=== PATIENT | female | born 1950 | race American Indian/Alaskan Native ===

== ENCOUNTER 2019-11-03 10:16 | Observation (INO) | payer MEDICARE ==
[2019-11-03] MEDS ORDERED: ASPIRIN 325 MG TAB PO ONE (10:38)
--- NOTE | 2019-11-03 11:31 | XRay Report ---
CHEST 1 VIEW INDICATION: Chest Pain. COMPARISON: 08/07/2017. FINDINGS: Support devices: None. Heart: Normal. Lungs/Pleura: No acute pulmonary or pleural findings. IMPRESSION: 1. No acute findings. Signer Name: Jose Alvarado MD Signed: 11/03/2019 11:27 AM Workstation Name: [id number]
[2019-11-03 11:32] LABS: Basophils % (Auto) 0.6 % (0.0-1.8); Eosinophils # (Auto) 0.1 K/mm3 (0.0-0.4); Hematocrit 36.8 % (30.3-42.9); Lymphocytes # (Auto) 0.9 K/mm3 (1.2-5.4); Mean Corpuscular HGB Conc 35 % (30-34); Mean Corpuscular Volume 97 fl (79-97); Monocytes # (Auto) 0.4 K/mm3 (0.0-0.8); Monocytes % (Auto) 6.4 % (0.0-7.3); Platelet Count 189 K/mm3 (140-440); Red Blood Count 3.78 M/mm3 (3.65-5.03); Red Cell Distribution Width 13.5 % (13.2-15.2)
[2019-11-03] MEDS ORDERED: NITROGLYCERIN 0.4 MG TAB SUBL SL PRN (11:47)
[2019-11-03] MEDS ORDERED: hydroCHLOROthiazide 25 MG TAB PO ONE (11:48)
[2019-11-03] MEDS ORDERED: LOSARTAN 50 MG TAB PO ONE (11:48)
[2019-11-03] MEDS ORDERED: amLODIPine 10 MG TAB PO STA (11:48)
[2019-11-03] MEDS ORDERED: METOPROLOL TARTRATE 50 MG TAB PO ONE (11:48)
--- NOTE | 2019-11-03 11:48 | Emergency Department Report ---
ED Chest Pain HPI - General Chief Complaint: Chest Pain Stated Complaint: CHEST PAIN, SOB PUI?: No Time Seen by Provider: 11/03/19 11:30 Source: patient, RN notes reviewed, old records reviewed Mode of arrival: Stretcher Limitations: No Limitations - History of Present Illness Initial Comments: The patient was evaluated in the emergency department for symptoms described in the history of present illness. He/she was evaluated in the context of the global COVID-19 pandemic, which necessitated consideration that the patient mi ght be at risk for infection with the virus that causes COVID-19. Institutional protocols and algorithms that pertain to the evaluation of patients at risk for COVID-19 are in a state of rapid change based on information released by regulatory bodies including the CDC and federal and state organizations. These policies and algorithms were followed during the patient's care in the emergency department. Please note that these policies, procedures and recommendations changed on a rapid basis. During the entire history and physical examination, I am chemical processing technician and escorted by Software Quality Tester/air brake worker Walter Corrales Primary cardiology: Dr. Schneider; [facility], [phone] The patient is a 68-year-old female. I have evaluated her in the past. Past medical history includes hypertension, type 2 diabetes, heart disease with stents, MDD, dyslipidemia. The patient had a cardiac catheterization at this hospital in 2018, which showed severe single-vessel mcgrath coronary artery disease, with 90% proximal RCA stenosis, and a long complex 80% mid RCA stenosis, in the setting of acute co ronary syndrome/unstable angina. The patient had a guided PCI with drug-eluting stents placed. Residual 30 to 40% distal RCA stenosis is identified. She was found to have an ejection fraction of 60 to 65%. Recommendations were to continue aspirin, Plavix and statin therapy. Blood pressure control, "the patient absolutely needs to quit smoking given aggressive/progressive coronary artery disease." Today, the patient presents to the ER with a complaint of central and left-sided chest pain, with associated shortness of breath, intermittent over the past few days. There is no vomiting or diaphoresis. There is no calf pain or calf swelling, travel, surgery, or immobilization. The patient reports that she is still smoking. She is taking aspirin on a regular basis. However, she is not taking Imdur, and it does not appear that she is taking Plavix. She has not had a cardiac catheterization or stress test since 2018. She is right-hand dominant. She denies repetitive range of motion and trauma. The chest pain is intermittent, does not radiate anywhere, and does not have exacerbating or relieving factors. She is chest pain-free at this time. Symptoms have been going on for about the past 2 days. MD Complaint: chest pain -: Gradual, days(s) Onset: during rest Pain Location: left chest Pain Radiation: none Severity: moderate Quality: tightness, aching Consistency: intermittent Improves With: nothing Worsens With: nothing re: dyspnea Aspirin use within the Past 7 Days: (1) Yes - Related Data Home Medications Medication Instructions Recorded Confirmed Last Taken Famotidine [Pepcid] 20 mg PO BID 08/05/17 08/05/17 08/03/17 Insulin Glargine,Hum.rec.anlog 53 units SC HS 08/05/17 08/05/17 08/04/17 [Lantus] 53 units Novolin R 13 units SQ AC 08/05/17 08/05/17 Unknown Sertraline [Zoloft] 50 mg PO QDAY 08/05/17 08/05/17 08/03/17 Previous Rx's Medication Instructions Recorded Last Taken Type Magnesium Oxide 400 mg PO BID #30 tablet 08/05/17 Unknown Rx Acetaminophen [Acetaminophen TAB] 650 mg PO Q4H PRN #30 tablet 08/07/17 Unknown Rx Aspirin EC [Halfprin EC] 81 mg PO QDAY #30 tablet 08/07/17 Unknown Rx Clopidogrel [Plavix] 75 mg PO QDAY #30 tablet 08/07/17 Unknown Rx ISOSORBIDE MONOnitrate [Imdur ER] 30 mg PO QDAY #30 tablet 08/07/17 Unknown Rx Losartan/Hydrochlorothiazide 1 each PO DAILY #30 tablet 08/07/17 Unknown Rx [Losartan-Hctz 100-25 mg Tab] Metoprolol [Lopressor TAB] 25 mg PO BID #60 tablet 08/07/17 Unknown Rx NIFEdipine [Nifedipine ER] 60 mg PO BID #60 08/07/17 08/04/17 Rx Rosuvastatin (Nf) [Crestor] 20 mg PO QHS #30 tablet 08/07/17 Unknown Rx Allergies Allergy/AdvReac Type Severity Reaction Status Date / Time No Known Allergies Allergy Unverified 08/04/17 16:04 Heart Score - HEART Score History: Moderately suspicious EKG: Non-specific Age: > 65 Risk factors: > 3 risk factors or hx of atherosclerotic disease Troponin: < normal limit HEART Score: 6 - Critical Actions Critical Actions: 4-6 pts:12-16.6% risk of adverse cardiac event. Should be admitted ED Review of Systems ROS: Stated complaint: CHEST PAIN, SOB Other details as noted in HPI Constitutional: denies: fever Eyes: denies: eye discharge ENT: denies: congestion Respiratory: shortness of breath Cardiovascular: chest pain Gastrointestinal: denies: abdominal pain, nausea, vomiting, hematemesis, melena, hematochezia Genitourinary: denies: dysuria Musculoskeletal: myalgia. denies: back pain Hematological/Lymphatic: denies: easy bleeding ED Past Medical Hx - Past Medical History Previous Medical History?: Yes Hx Hypertension: Yes Hx Heart Attack/AMI: Yes Hx Diabetes: Yes Hx HIV: Yes - Surgical History Past Surgical History?: Yes Hx Coronary Stent: Yes Additional Surgical History: Cardiac stents - Social History Smoking Status: Current Every Day Smoker - Medications Home Medications: Home Medications Medication Instructions Recorded Confirmed Last Taken Type Famotidine [Pepcid] 20 mg PO BID 08/05/17 08/05/17 08/03/17 History Insulin Glargine,Hum.rec.anlog 53 units SC HS 08/05/17 08/05/17 08/04/17 History [Lantus] 53 units Magnesium Oxide 400 mg PO BID #30 tablet 08/05/17 Unknown Rx Novolin R 13 units SQ AC 08/05/17 08/05/17 Unknown History Sertraline [Zoloft] 50 mg PO QDAY 08/05/17 08/05/17 08/03/17 History Acetaminophen [Acetaminophen TAB] 650 mg PO Q4H PRN #30 tablet 08/07/17 Unknown Rx Aspirin EC [Halfprin EC] 81 mg PO QDAY #30 tablet 08/07/17 Unknown Rx Clopidogrel [Plavix] 75 mg PO QDAY #30 tablet 08/07/17 Unknown Rx ISOSORBIDE MONOnitrate [Imdur ER] 30 mg PO QDAY #30 tablet 08/07/17 Unknown Rx Losartan/Hydrochlorothiazide 1 each PO DAILY #30 tablet 08/07/17 Unknown Rx [Losartan-Hctz 100-25 mg Tab] Metoprolol [Lopressor TAB] 25 mg PO BID #60 tablet 08/07/17 Unknown Rx NIFEdipine [Nifedipine ER] 60 mg PO BID #60 08/07/17 08/05/17 08/04/17 Rx Rosuvastatin (Nf) [Crestor] 20 mg PO QHS #30 tablet 08/07/17 Unknown Rx ED Physical Exam - General Limitations: No Limitations General appearance: alert, in no apparent distress, obese - Head Head exam: Present: atraumatic, normocephalic - Eye Eye exam: Present: normal appearance, EOMI. Absent: nystagmus - ENT ENT exam: Present: normal exam, normal orophraynx, mucous membranes moist, normal external ear exam - Neck Neck exam: Present: normal inspection, full ROM. Absent: tenderness, meningismus - Respiratory Respiratory exam: Present: normal lung sounds bilaterally, chest wall tenderness . Absent: respiratory distress, wheezes, rales, rhonchi, stridor - Cardiovascular Cardiovascular Exam: Present: regular rate, normal rhythm, normal heart sounds. Absent: bradycardia, tachycardia, irregular rhythm, systolic murmur, diastolic murmur, rubs, gallop - GI/Abdominal GI/Abdominal exam: Present: soft. Absent: distended, tenderness, guarding, rebound, rigid, pulsatile mass - Extremities Exam Extremities exam: Present: normal inspection, full ROM, tenderness (Patient re ports chronic point tenderness to the right lateral and medial malleolus.), other (2+ pulses noted in the bilateral upper and lower extremities. There is no palpable cord. negative Homans sign. Muscular compartments are soft. The pelvis is stable.). Absent: calf tenderness - Back Exam Back exam: Present: normal inspection, full ROM. Absent: tenderness, CVA tenderness (R), CVA tenderness (L), paraspinal tenderness, vertebral tenderness - Neurological Exam Neurological exam: Present: alert, oriented X3, other (No facial droop. Tongue midline. Extraocular movements intact bilaterally. Facial sensation intact to light touch in V1, V2, V3 distribution bilaterally. 5 and a 5 strength in 4 extremities. Sensation intact to light touch in 4 extremities.). Absent: motor sensory deficit - Psychiatric Psychiatric exam: Present: normal affect, normal mood - Skin Skin exam: Present: warm, dry, intact, normal color. Absent: rash ED Course Vital Signs 11/03/19 10:34 Temperature 98.7 F Pulse Rate 80 Respiratory 18 Rate Blood Pressure 193/70 O2 Sat by Pulse 99 Oximetry AROLDO score - Aroldo Score Age > 65: (1) Yes Aspirin use within the Past 7 Days: (1) Yes 3 or more CAD Risk Factors: (1) Yes 2 or more Angina events in past 24 hrs: (1) Yes Known CAD with more than 50% Stenosis: (1) Yes Elevated Cardiac Markers: (0) No ST Deviation Greater than 0.5mm: (0) No AROLDO Score: 5 ED Medical Decision Making - Lab Data Result diagrams: 11/03/19 11:08 11/03/19 11:05 Vital Signs 11/03/19 10:34 Temperature 98.7 F Pulse Rate 80 Respiratory 18 Rate Blood Pressure 193/70 O2 Sat by Pulse 99 Oximetry Lab Results 11/03/19 11/03/19 Range/Units 11:05 11:08 WBC 6.6 (4.5-11.0) K/mm3 RBC 3.78 (3.65-5.03) M/mm3 Hgb 13.0 (10.1-14.3) gm/dl Hct 36.8 (30.3-42.9) % MCV 97 (79-97) fl MCH 34 H (28-32) pg MCHC 35 H (30-34) % RDW 13.5 (13.2-15.2) % Plt Count 189 (140-440) K/mm3 Lymph % (Auto) 14.0 (13.4-35.0) % [place] % (Auto) 6.4 (0.0-7.3) % Eos % (Auto) 2.0 (0.0-4.3) % Baso % (Auto) 0.6 (0.0-1.8) % Lymph # (Auto) 0.9 L (1.2-5.4) K/mm3 [place] # (Auto) 0.4 (0.0-0.8) K/mm3 Eos # (Auto) 0.1 (0.0-0.4) K/mm3 Baso # (Auto) 0.0 (0.0-0.1) K/mm3 Seg Neutrophils % 77.0 H (40.0-70.0) % Seg Neutrophils # 5.1 (1.8-7.7) K/mm3 Estimated GFR > 60 ml/min BUN/Creatinine Ratio 16 % Troponin T < 0.010 (0.00-0.029) ng/mL - EKG Data -: EKG Interpreted by Me EKG shows normal: sinus rhythm Rate: normal - EKG Data 11/03/19 12:20 The EKG today shows a sinus rhythm, 73 bpm, borderline leftward axis deviation, borderline left anterior fascicular block, left ventricular hypertrophy, QTC 459 ms, 4 hours progression, minimal motion artifact. This EKG is not a STEMI. The EKG is abnormal. Fairly unchanged from prior EKG from 2018, with pseudo-normalized T waves in the lateral leads and inferior leads. - Radiology Data Radiology results: report reviewed, image reviewed Print Report Referring Physician: OLGA ALVARADO Patient Name: DANIELLA VALDIVIA Date of : 1950 Sex: Female Report Date: 2019-11-03 Report Status: Finalized Findings [place] [id number] XRay Report Signed Patient: DANIELLA VALDIVIA MR#: [id number] : 1950 Acct:[id number] Age/Sex: 68 / F ADM Date: 11/03/19 Loc: ED Attending Dr: Ordering Physician: OLGA ALVARADO MD Date of Service: 11/03/19 Procedure(s): XR chest 1V ap Accession Number(s): [id number] cc: OLGA ALVARADO MD Fluoro Time In Minutes: CHEST 1 VIEW INDICATION: Chest Pain. COMPARISON: 08/07/2017. FINDINGS: Support devices: None. Heart: Normal. Lungs/Pleura: No acute pulmonary or pleural findings. IMPRESSION: 1. No acute findings. Signer Name: Jose Alvarado MD Signed: 11/03/2019 11:27 AM Workstation Name: [id number] Transcribed By: STEVE Dictated By: Jose Alvarado MD Electronically Authenticated By: Jose Alvarado MD Signed Date/Time: 11/03/19 112 DD/ 26 TD/TT: - Medical Decision Making Differential diagnosis, including but not limited to: Stable angina, unstable angina, acute coronary syndrome, costochondritis, GERD, gastritis, hiatal hernia Assessment and plan: 68-year-old female with known extensive coronary artery disease, with very typical chest pain. Her EKG is not consistent with a STEMI. She is chest pain-free at this time. She denies DVT, pulmonary embolism risk factors and she is low risk by Wells criteria. There is a component of reproducible chest wall pain. However, patient at moderate to high risk for major adverse cardiac event as per heart score. We have recommended admission to the medical service for accelerated cardiac risk ratification and monitoring. The patient is amenable to this plan of care. 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 Kerri Khan, as her group performed cardiac catheterization on this patient in 2018. They will follow in consultation. Hospital physician, Dr. Shelli Story to admit Do not clinically suspect pneumonia at this time, nor do we suspect COVID at this time elevated blood pressure is reviewed and appreciated. This is a chronic finding. She has equal pulses in the upper and lower extremities, No pulsatile abdominal mass, unremarkable mediastinum, this is very unlikely to be aortic disease. We will continue previous antihypertensive medications Critical care attestation.: If time is entered above; I have spent that time in minutes in the direct care of this critically ill patient, excluding procedure time. ED Disposition Clinical Impression: History of coronary angioplasty, Chest pain, CAD (coronary artery disease), HTN (hypertension) Disposition: OP ADMIT IP TO THIS HOSP Is pt being admited?: Yes Does the pt Need Aspirin: No Condition: Good Instructions: Chest Pain (ED), Hypertension (ED)
[2019-11-03 12:14] LABS: BUN/Creatinine Ratio 16; Blood Urea Nitrogen 16 mg/dL (7-17); Hemolysis Index 12
[2019-11-03 12:40] LABS: INR 1.03 (0.87-1.13)
[2019-11-03] MEDS ORDERED: SODIUM CHLORIDE 0.9% 500 ML 500 ML IV SCH (15:00)
--- NOTE | 2019-11-03 16:06 | Consultation ---
History of Present Illness Consult date: 11/03/19 Requesting physician: OLGA ALVARADO Consult reason: chest pain History of present illness: Pt is a 68 y.o. AA female with a hx of CAD s/p PCI x 4 (most recently 07/2017, on Plavix) who presented with complaints of intermittent left-sided chest pain/tightness x 2 days prior to arrival. Pt states pain is severe and asso ciated with hot flashes/flushing, dizziness, and SOB. Each episode lasts approximately 5 min. Aggravated by activity. Some relief noted with SL NTG. Pt also reports progressively worsening SOB/GIRNO over the past week. She denies any additional cardiac complaints. No recent fever/chills. Pt reports she has been compliant with home medications and diet. Trop neg x 2. ECG reveals no acute ischemic changes. CXR unremarkable. HEART Score: 6 Lexiscan MPI stress test 08/2017 - negative for ischemia. [facility] 07/2017 - PCI x 2 of RCA w/residual stenosis of 30-40% noted, patent LAD and LCx stents, LVEF 60-65%. [facility] 10/2016 - PCI of LAD and LCx. Of note, pts Primary Child Watch Attendant is Dr. Schneider @ [facility]. Past History Past Medical History: CAD, diabetes, hypertension, hyperlipidemia Past Surgical History: Other (coronary stents x 4) Social history: smoking. denies: alcohol abuse Medications and Allergies Allergies Allergy/AdvReac Type Severity Reaction Status Date / Time No Known Allergies Allergy Unverified 08/04/17 16:04 Home Medications Medication Instructions Recorded Confirmed Last Taken Type Famotidine [Pepcid] 20 mg PO BID 08/05/17 11/03/19 08/03/17 History Novolin R 17 units SQ AC 08/05/17 11/03/19 Unknown History Aspirin EC [Halfprin EC] 81 mg PO QDAY #30 tablet 08/07/17 11/03/19 Unknown Rx Clopidogrel [Plavix] 75 mg PO QDAY #30 tablet 08/07/17 11/03/19 Unknown Rx Losartan/Hydrochlorothiazide 1 each PO DAILY #30 tablet 08/07/17 11/03/19 Unknown Rx [Losartan-Hctz 100-25 mg Tab] Metoprolol [Lopressor TAB] 25 mg PO BID #60 tablet 08/07/17 11/03/19 Unknown Rx NIFEdipine [Nifedipine ER] 60 mg PO BID #60 08/07/17 11/03/19 08/04/17 Rx Rosuvastatin (Nf) [Crestor] 20 mg PO QHS #30 tablet 08/07/17 11/03/19 Unknown Rx Bictegrav/Emtricit/Tenofov [place] 1 tab PO QDAY 11/03/19 11/03/19 Unknown History [Biktarvy 50-200-25 mg (Nf)] Doxazosin [Cardura] 4 mg PO QDAY 11/03/19 11/03/19 Unknown History Insulin Glargine,Hum.rec.anlog 55 unit SQ HS 11/03/19 11/03/19 Unknown History [Talaglsheron Hester U-100] Active Meds: Active Medications Sodium Chloride (Nacl 0.9% 500 Ml) 500 mls @ 50 mls/hr IV DIRECT MARY Stop: 11/04/19 00:59 Nitroglycerin (Nitrostat) 0.4 mg SL .Q5MIN PRN PRN Reason: Chest Pain Review of Systems Constitutional: no fever, no chills, no sweats Ears, nose, mouth and throat: no nasal congestion, no sore throat Cardiovascular: chest pain, lightheadedness, shortness of breath, dyspnea on exertion, no orthopnea, no rapid/irregular heart beat, no edema, no syncope, no paroxysmal nocturnal dyspnea, no claudication Respiratory: shortness of breath, dyspnea on exertion, no cough Gastrointestinal: no abdominal pain, no nausea, no vomiting, no diarrhea, no constipation Genitourinary Female: no pelvic pain, no flank pain, no dysuria Musculoskeletal: no neck stiffness, no neck pain, no myalgias Integumentary: no rash, no wounds Neurological: no head injury, no paralysis, no weakness, no parathesias, no numbness, no tingling, no seizures, no syncope, no vertigo, no headaches Endocrine: no cold intolerance, no heat intolerance, no polydipsia, no polyuria Hematologic/Lymphatic: no easy bruising, no easy bleeding Allergic/Immunologic: no urticaria Physical Examination Last Vital Signs Temp 98.7 F 11/03/19 10:34 Pulse 58 L 11/03/19 15:57 Resp 11 L 11/03/19 13:45 BP 179/59 11/03/19 13:45 Pulse Ox 98 11/03/19 13:45 General appearance: no acute distress HEENT: Positive: EOMI, Normocephaly, Mucus Membranes Moist Neck: Positive: neck supple, trachea midline. Negative: JVD/HJR Cardiac: Positive: Reg Rate and Rhythm, S1/S2 Lungs: Positive: clear to auscultation (bilaterally) Neuro: Positive: Grossly Intact Abdomen: Positive: Soft, Active Bowel Sounds. Negative: Tender Skin: Negative: Rash, Wound Musculoskeletal: No Fluid Collection, No Pain, Normal Range of Motion Extremities: Present: upper extr. pulses, lower extr. pulses. Absent: edema Results 11/03/19 11:08 11/03/19 11:05 Coagulation 11/03/19 Range/Units 12:13 PT 13.7 (12.2-14.9) Sec. INR 1.03 (0.87-1.13) CBC 11/03/19 Range/Units 11:08 WBC 6.6 (4.5-11.0) K/mm3 RBC 3.78 (3.65-5.03) M/mm3 Hgb 13.0 (10.1-14.3) gm/dl Hct 36.8 (30.3-42.9) % Plt Count 189 (140-440) K/mm3 Lymph # (Auto) 0.9 L (1.2-5.4) K/mm3 [place] # (Auto) 0.4 (0.0-0.8) K/mm3 Eos # (Auto) 0.1 (0.0-0.4) K/mm3 Baso # (Auto) 0.0 (0.0-0.1) K/mm3 Comprehensive Metabolic Panel 11/03/19 Range/Units 11:05 Sodium 145 (137-145) mmol/L Potassium 5.2 H (3.6-5.0) mmol/L Chloride 105.3 (98-107) mmol/L Carbon Dioxide 25 (22-30) mmol/L BUN 16 (7-17) mg/dL Creatinine 1.0 (0.6-1.2) mg/dL Glucose 208 H (65-100) mg/dL Calcium 10.0 (8.4-10.2) mg/dL - Imaging and Cardiology Cardiac cath: pending, report reviewed (07/2017 - PCI x 2 of RCA w/residual stenosis of 30-40% noted, patent LAD and LCx stents, LVEF 60-65%), other (10/2016 - PCI of LAD and LCx) EKG: report reviewed, image reviewed - EKG Interpretation EKG: no acute changes EKG interpretations - Telemetry EKG Rhythm: Sinus Rhythm - EKG Sinus rhythms and dysrhythmias: sinus rhythm Chamber hypertrophy or enlargement: left ventricular hypertro Repolarization changes or abnormalities: nonspecific abnormality, ST segment, and/or T wave Assessment and Plan Plan for LHC in AM. NPO after midnight. Resume home cardiac regimen. Ok to continue Plavix. Obtain echo. Pt seen in conjunction with Dr. Parker, who agrees with the assessment and plan of care. - Patient Problems (1) Chest pain Current Visit: Yes Status: Acute Qualifiers: (2) CAD (coronary artery disease) Current Visit: Yes Status: Chronic Qualifiers: Coronary Disease-Associated Artery/Lesion type: [place] artery [place] vs. transplanted heart: [place] heart Associated angina: with unstable angina Qualified Code(s): I25.110 - Atherosclerotic heart disease of [place] coronary artery with unstable angina pectoris (3) Stented coronary artery Current Visit: Yes Status: Acute Plan to address problem: x4 (4) Hyperkalemia Current Visit: Yes Status: Acute (5) HTN (hypertension) Current Visit: Yes Status: Chronic Qualifiers: Hypertension type: essential hypertension Qualified Code(s): I10 - Essential (primary) hypertension (6) HLD (hyperlipidemia) Current Visit: Yes Status: Chronic Qualifiers: Hyperlipidemia type: mixed hyperlipidemia Qualified Code(s): E78.2 - Mixed hyperlipidemia (7) DM2 (diabetes mellitus, type 2) Current Visit: Yes Status: Chronic (8) Tobacco abuse Current Visit: Yes Status: Chronic
[2019-11-03] MEDS: LOSARTAN 50 MG TAB PO SCH (17:07)
[2019-11-03] MEDS: hydroCHLOROthiazide 25 MG TAB PO SCH (17:07)
[2019-11-03] MEDS: amLODIPine 10 MG TAB PO SCH (17:08)
[2019-11-03] MEDS ORDERED: INSULIN REGULAR, HUMAN 100 UNIT/ML 3ML VIAL SUB-Q SCH (22:00)
[2019-11-03] MEDS: METOPROLOL TARTRATE 25 MG TAB PO SCH (22:30)
[2019-11-03] MEDS ORDERED: NIFEdipine XL 60 MG TAB PO SCH (23:45)
[2019-11-03] MEDS ORDERED: METOPROLOL TARTRATE 25 MG TAB PO SCH (23:45)
[2019-11-04] MEDS ORDERED: NIFEdipine XL 60 MG TAB PO SCH (06:00)
[2019-11-04 06:06] LABS: Hematocrit 31.6 % (30.3-42.9); Mean Corpuscular HGB Conc 35 % (30-34); Mean Corpuscular Volume 98 fl (79-97); Platelet Count 169 K/mm3 (140-440); Red Blood Count 3.23 M/mm3 (3.65-5.03); Red Cell Distribution Width 13.3 % (13.2-15.2)
[2019-11-04 06:16] LABS: BUN/Creatinine Ratio 21; Blood Urea Nitrogen 17 mg/dL (7-17); Calcium 8.7 mg/dL (8.4-10.2); Hemolysis Index 1
[2019-11-04 06:20] LABS: INR 1.07 (0.87-1.13)
--- NOTE | 2019-11-04 07:27 | History and Physical Report ---
History of Present Illness Date of examination: 11/03/19 Date of admission: 11/03/19 12:30 Chief complaint: Chest pain for 1 day History of present illness: 58-year-old female with multiple medical problems including coronary artery disease multiple stents x4, hypertension, type 2 diabetes and hyperlipidemia comes in for recurrent chest pain off and on. For the last 3 to 4 days. Patient had a cardiac cath in this hospital in 2018 which showed severe essentially single-vessel coronary artery disease with 90% proximal RCA stenosis and a long complex 80% mid RCA stenosis in the setting of acute coronary syndrome/unstable angina. Patient had 2 stents at that time. Patient also had 2 stents over 9 months before. Chest pain is intermittent in nature exertional and about 7 on a scale of 1-10. Some shortness of breath present. No palpitations. No diaphoresis. No radiation of the chest pain. Patient also has history of HIV. - Past Medical History Previous Medical History?: Yes Hx Hypertension: Yes Hx Heart Attack/AMI: Yes Hx Diabetes: Yes Hx HIV: Yes - Surgical History Past Surgical History?: Yes Hx Coronary Stent: Yes Additional Surgical History: Cardiac stents - Social History Smoking Status: Current Every Day Smoker Family history Htn - Medications Home Medications: Home Medications Medication Instructions Recorded Confirmed Last Taken Type Famotidine [Pepcid] 20 mg PO BID 08/05/17 08/05/17 08/03/17 History Insulin Glargine,Hum.rec.anlog 53 units SC HS 08/05/17 08/05/17 08/04/17 History [Lantus] 53 units Magnesium Oxide 400 mg PO BID #30 tablet 08/05/17 Unknown Rx Novolin R 13 units SQ AC 08/05/17 08/05/17 Unknown History Sertraline [Zoloft] 50 mg PO QDAY 08/05/17 08/05/17 08/03/17 History Acetaminophen [Acetaminophen TAB] 650 mg PO Q4H PRN #30 tablet 08/07/17 Unknown Rx Aspirin EC [Halfprin EC] 81 mg PO QDAY #30 tablet 08/07/17 Unknown Rx Clopidogrel [Plavix] 75 mg PO QDAY #30 tablet 08/07/17 Unknown Rx ISOSORBIDE MONOnitrate [Imdur ER] 30 mg PO QDAY #30 tablet 08/07/17 Unknown Rx Losartan/Hydrochlorothiazide 1 each PO DAILY #30 tablet 08/07/17 Unknown Rx [Losartan-Hctz 100-25 mg Tab] Metoprolol [Lopressor TAB] 25 mg PO BID #60 tablet 08/07/17 Unknown Rx NIFEdipine [Nifedipine ER] 60 mg PO BID #60 08/07/17 08/05/17 08/04/17 Rx Rosuvastatin (Nf) [Crestor] 20 mg PO QHS #30 tablet 08/07/17 Unknown Rx Review of Systems ROS: Stated complaint: CHEST PAIN, SOB Other details as noted in HPI Constitutional: denies: fever Eyes: denies: eye discharge ENT: denies: congestion Respiratory: shortness of breath Cardiovascular: chest pain Gastrointestinal: denies: abdominal pain, nausea, vomiting, hematemesis, melena, hematochezia Genitourinary: denies: dysuria Musculoskeletal: myalgia. denies: back pain Hematological/Lymphatic: denies: easy bleeding Past History Past Medical History: CAD, diabetes, hypertension, hyperlipidemia Past Surgical History: Other (coronary stents x 4) Social history: smoking. denies: alcohol abuse Medications and Allergies Allergies Allergy/AdvReac Type Severity Reaction Status Date / Time No Known Allergies Allergy Unverified 08/04/17 16:04 Home Medications Medication Instructions Recorded Confirmed Last Taken Type Famotidine [Pepcid] 20 mg PO BID 08/05/17 11/03/19 08/03/17 History Novolin R 17 units SQ AC 08/05/17 11/03/19 Unknown History Aspirin EC [Halfprin EC] 81 mg PO QDAY #30 tablet 08/07/17 11/03/19 Unknown Rx Clopidogrel [Plavix] 75 mg PO QDAY #30 tablet 08/07/17 11/03/19 Unknown Rx Losartan/Hydrochlorothiazide 1 each PO DAILY #30 tablet 08/07/17 11/03/19 Unknown Rx [Losartan-Hctz 100-25 mg Tab] Metoprolol [Lopressor TAB] 25 mg PO BID #60 tablet 08/07/17 11/03/19 Unknown Rx NIFEdipine [Nifedipine ER] 60 mg PO BID #60 08/07/17 11/03/19 08/04/17 Rx Rosuvastatin (Nf) [Crestor] 20 mg PO QHS #30 tablet 08/07/17 11/03/19 Unknown Rx Bictegrav/Emtricit/Tenofov Ala 1 tab PO QDAY 11/03/19 11/03/19 Unknown History [Biktarvy 50-200-25 mg (Nf)] Doxazosin [Cardura] 4 mg PO QDAY 11/03/19 11/03/19 Unknown History Insulin Glargine,Hum.rec.anlog 55 unit SQ HS 11/03/19 11/03/19 Unknown History [Yesenia Hester U-100] Metformin HCl [metFORMIN] 1,000 mg PO BID 11/03/19 11/03/19 11/03/19 History Active Meds: Active Medications Amlodipine Besylate (Amlodipine) 10 mg PO QDAY [facility] Last Admin: 11/03/19 17:08 Dose: Not Given Documented by: Aspirin (Baby Aspirin) 81 mg PO QDAY [facility] Atorvastatin Calcium (Lipitor) 40 mg PO QHS [facility] Last Admin: 11/04/19 01:47 Dose: Not Given Documented by: Clopidogrel Bisulfate (Plavix) 75 mg PO QDAY [facility] Doxazosin Mesylate (Cardura) 4 mg PO QDAY [facility] Famotidine (Pepcid) 20 mg PO BID [facility] Hydrochlorothiazide (Hctz) 25 mg PO QDAY [facility] Last Admin: 11/03/19 17:07 Dose: Not Given Documented by: Insulin Glargine (Lantus) 55 units SUB-Q QHS [facility] Insulin Human Lispro (Humalog) 0 unit SUB-Q ACHS [facility]; Protocol Insulin Human Regular (Humulin R) 10 unit SUB-Q AC [facility] Losartan Potassium (Cozaar) 100 mg PO QDAY [facility] Last Admin: 11/03/19 17:07 Dose: Not Given Documented by: Metformin HCl (Glucophage) 1,000 mg PO BIDDIAB [facility] Metoprolol Tartrate (Metoprolol) 25 mg PO BID [facility] Last Admin: 11/03/19 22:30 Dose: 25 mg Documented by: Miscellaneous Medication (Bictegrav/Emtricit/Tenofov Ala) 1 tab PO QDAY [facility] Nifedipine (Procardia Xl) 60 mg PO BID@0600,1800 [facility] Nitroglycerin (Nitrostat) 0.4 mg SL .Q5MIN PRN PRN Reason: Chest Pain Exam - Constitutional Vitals: Temp Pulse Resp BP Pulse Ox 98.0 F 57 L 18 146/44 97 11/04/19 04:26 11/04/19 04:26 11/04/19 04:26 11/04/19 04:26 11/04/19 04:26 General appearance: Present: no acute distress, well-nourished - EENT Eyes: Present: PERRL ENT: hearing intact, clear oral mucosa - Neck Neck: Present: supple, normal ROM - Respiratory Respiratory effort: normal Respiratory: bilateral: CTA - Cardiovascular Heart rate: 78 Rhythm: regular Heart Sounds: Present: S1 & S2. Absent: rub, click - Extremities Extremities: no ischemia, pulses intact, pulses symmetrical, No edema Peripheral Pulses: within normal limits - Abdominal General gastrointestinal: Present: soft, non-tender, non-distended, normal bowel sounds Female genitourinary: Present: normal - Integumentary Integumentary: Present: clear, warm, dry - Musculoskeletal Musculoskeletal: gait normal, strength equal bilaterally - Psychiatric Psychiatric: appropriate mood/affect, intact judgment & insight - Neurologic Neurologic: CNII-XII intact, moves all extremities - Allied Health Allied health notes reviewed: nursing, case management HEART Score - HEART Score History: Moderately suspicious EKG: Non-specific Age: > 65 Risk factors: > 3 risk factors or hx of atherosclerotic disease Troponin: Troponin T < 0.010 ng/mL (0.00-0.029) 11/03/19 17:11 Troponin: < normal limit HEART Score: 6 - Critical Actions Critical Actions: 4-6 pts:12-16.6% risk of adverse cardiac event. Should be admitted Results - Labs CBC & Chem 7: 11/04/19 05:09 11/04/19 05:09 Labs: Laboratory Last Values WBC 5.4 K/mm3 (4.5-11.0) 11/04/19 05:09 RBC 3.23 M/mm3 (3.65-5.03) L 11/04/19 05:09 Hgb 11.0 gm/dl (10.1-14.3) 11/04/19 05:09 Hct 31.6 % (30.3-42.9) 11/04/19 05:09 MCV 98 fl (79-97) H 11/04/19 05:09 MCH 34 pg (28-32) H 11/04/19 05:09 MCHC 35 % (30-34) H 11/04/19 05:09 RDW 13.3 % (13.2-15.2) 11/04/19 05:09 Plt Count 169 K/mm3 (140-440) 11/04/19 05:09 Lymph % (Auto) 14.0 % (13.4-35.0) 11/03/19 11:08 [place] % (Auto) 6.4 % (0.0-7.3) 11/03/19 11:08 Eos % (Auto) 2.0 % (0.0-4.3) 11/03/19 11:08 Baso % (Auto) 0.6 % (0.0-1.8) 11/03/19 11:08 Lymph # (Auto) 0.9 K/mm3 (1.2-5.4) L 11/03/19 11:08 [place] # (Auto) 0.4 K/mm3 (0.0-0.8) 11/03/19 11:08 Eos # (Auto) 0.1 K/mm3 (0.0-0.4) 11/03/19 11:08 Baso # (Auto) 0.0 K/mm3 (0.0-0.1) 11/03/19 11:08 Seg Neutrophils % 77.0 % (40.0-70.0) H 11/03/19 11:08 Seg Neutrophils # 5.1 K/mm3 (1.8-7.7) 11/03/19 11:08 PT 14.1 Sec. (12.2-14.9) 11/04/19 05:09 INR 1.07 (0.87-1.13) 11/04/19 05:09 Sodium 140 mmol/L (137-145) 11/04/19 05:09 Potassium 3.8 mmol/L (3.6-5.0) D 11/04/19 05:09 Chloride 104.1 mmol/L (98-107) 11/04/19 05:09 Carbon Dioxide 24 mmol/L (22-30) 11/04/19 05:09 Anion Gap 16 mmol/L 11/04/19 05:09 BUN 17 mg/dL (7-17) 11/04/19 05:09 Creatinine 0.8 mg/dL (0.6-1.2) 11/04/19 05:09 Estimated GFR > 60 ml/min 11/04/19 05:09 BUN/Creatinine Ratio 21 % 11/04/19 05:09 Glucose 184 mg/dL (65-100) H 11/04/19 05:09 POC Glucose 180 (70-105) H 11/04/19 05:58 Calcium 8.7 mg/dL (8.4-10.2) 11/04/19 05:09 Magnesium 1.90 mg/dL (1.7-2.3) 11/03/19 12:13 Total Creatine Kinase 199 units/L (30-135) H 11/03/19 12:13 Troponin T < 0.010 ng/mL (0.00-0.029) 11/03/19 17:11 Short CBC 11/03/19 11/04/19 Range/Units 11:08 05:09 WBC 6.6 5.4 (4.5-11.0) K/mm3 Hgb 13.0 11.0 (10.1-14.3) gm/dl Hct 36.8 31.6 (30.3-42.9) % Plt Count 189 169 (140-440) K/mm3 [facility] 11/03/19 11/04/19 11:05 05:09 Sodium 145 140 Potassium 5.2 H 3.8 D Chloride 105.3 104.1 Carbon Dioxide 25 24 BUN 16 17 Creatinine 1.0 0.8 Glucose 208 H 184 H Calcium 10.0 8.7 Cardiac Enzymes 11/03/19 11/03/19 11/03/19 Range/Units 11:05 12:13 14:24 Total Creatine Kinase 199 H (30-135) units/L Troponin T < 0.010 < 0.010 (0.00-0.029) ng/mL 11/03/19 Range/Units 17:11 Total Creatine Kinase (30-135) units/L Troponin T < 0.010 (0.00-0.029) ng/mL - Imaging and Cardiology EKG: report reviewed (Sinus rhythm no acute ST-T wave changes) Navas/IV: Voiding Method Toilet IV Catheter Type [Right Hand] Peripheral IV Assessment and Plan Advance Directives: Yes (Full code) VTE prophylaxis?: Chemical Plan of care discussed with patient/family: Yes - Patient Problems (1) Unstable angina Current Visit: Yes Status: Acute Plan to address problem: Patient for cath in the morning Serial troponins negative (2) History of coronary angioplasty Current Visit: Yes Status: Chronic Plan to address problem: Continue Plavix (3) CAD (coronary artery disease) Current Visit: Yes Status: Chronic Qualifiers: Coronary Disease-Associated Artery/Lesion type: [place] artery [place] vs. 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 use: unspecified rat exterminator insulin use status Plan to address problem: Check hemoglobin A1c Continue home medicines and coverage (5) HLD (hyperlipidemia) Current Visit: Yes Status: Chronic Qualifiers: Hyperlipidemia type: mixed hyperlipidemia Qualified Code(s): E78.2 - Mixed hyperlipidemia Plan to address problem: Continue statins (6) HTN (hypertension) Current Visit: Yes Status: Chronic Qualifiers: Hypertension type: essential hypertension Qualified Code(s): I10 - Essential (primary) hypertension Plan to address problem: Continue antihypertensives and adjust medications as necessary (7) DVT prophylaxis Current Visit: Yes Status: Acute Plan to address problem: On heparin and GI prophylaxis
[2019-11-04] MEDS ORDERED: NOVOLIN R SQ SCH (07:30)
[2019-11-04] MEDS: INSULIN LISPRO 100 UNIT/ML VIAL 3 mL SUB-Q SCH ×3 (07:30→17:23)
[2019-11-04] MEDS: metFORMIN 500 MG TAB PO SCH ×2 (08:00→17:20)
[2019-11-04] MEDS ORDERED: ASPIRIN 81 MG TAB CHEW ONE (08:13)
[2019-11-04] MEDS ORDERED: CLOPIDOGREL 75 MG TAB ONE (08:13)
[2019-11-04] MEDS ORDERED: SODIUM CHLORIDE 0.9% 500 ML 500 ML ONE (08:14)
[2019-11-04] MEDS: ASPIRIN 81 MG TAB CHEW PO SCH ×2 (08:18→10:00)
[2019-11-04] MEDS: CLOPIDOGREL 75 MG TAB PO SCH ×2 (08:19→11:54)
[2019-11-04] MEDS ORDERED: HEPARIN/NS 5000 UNIT/500ML 1,000 ML IR ONE (08:49)
[2019-11-04] MEDS ORDERED: VERAPAMIL 5 MG/2 ML INJ ONE (08:49)
[2019-11-04] MEDS ORDERED: NITROGLYCERIN SYRINGE 0 ML ONE (08:49)
[2019-11-04] MEDS ORDERED: HEPARIN 10,000 UNITS/10 ML VIAL ONE (08:49)
[2019-11-04] MEDS: MIDAZOLAM 2 MG/2 ML INJ ONE ×2 (09:07→09:14)
[2019-11-04] MEDS: fentaNYL 100 MCG/2 ML INJ ONE ×2 (09:07→09:14)
[2019-11-04] MEDS: LIDOCAINE (2%) 20 MG/1 ML VIAL 20 ML MDV INFILTRATI ONE ×2 (09:08→09:17)
[2019-11-04] MEDS ORDERED: DOXAZOSIN 4 MG TAB PO SCH (10:00)
[2019-11-04] MEDS ORDERED: ASPIRIN EC 81 MG TAB PO SCH (10:00)
[2019-11-04] MEDS ORDERED: CLOPIDOGREL 75 MG TAB PO SCH (10:00)
[2019-11-04] MEDS ORDERED: NON-FORMULARY EACH (Bictegrav/Emtricit/Tenofov Ala 1 TAB) PO SCH (10:00)
[2019-11-04] MEDS ORDERED: NON-FORMULARY EACH (Losartan/Hydrochlorothiazide [Losartan-Hctz 100-25 Mg Tab] 1 EACH) PO SCH (10:00)
[2019-11-04] MEDS: INSULIN REGULAR, HUMAN 100 UNIT/ML 3ML VIAL SUB-Q SCH ×3 (11:06→17:22)
[2019-11-04] MEDS ORDERED: MORPHINE 2 MG/1 ML INJ IV PRN (11:40)
[2019-11-04] MEDS: DOXAZOSIN 4 MG TAB PO SCH (11:50)
[2019-11-04] MEDS: hydroCHLOROthiazide 25 MG TAB PO SCH (11:50)
[2019-11-04] MEDS: amLODIPine 10 MG TAB PO SCH (11:52)
--- NOTE | 2019-11-04 12:54 | Cardiac Catherization Report ---
CARDIAC CATHETERIZATION REFERRING PHYSICIAN: Dr. Vasquez PRIMARY ____ INDICATION FOR PROCEDURE: The patient is a very pleasant 68-year-old female with multiple risk factors with multiple PCIs, had a PCI of RCA 2 years ago here, has had prior PCI of LAD and left circumflex. She is here with unstable angina, referred for left heart catheterization. Risks, benefits, alternatives explained at length prior to obtaining informed consent. PROCEDURE IN DETAIL: The patient requests groin approach. The patient was prepped and draped in sterile fashion, 8 mL of 2% lidocaine used to anesthetize the right common femoral artery via modified Seldinger technique. A 6-[place] sheath was placed in right common femoral artery via modified Seldinger technique. All exchanges performed to exchange a J-tip guidewire. JL3.5 catheter used to engage the left main. No dampening or ventricularization. Cineangiography performed in all projections. JR4 catheter used to cross the aortic valve under fluoroscopic guidance. Left ventriculography performed in 30 [place] and 30 ENGLISH projections via hand injections, catheter flushed. Manual pullback performed with continuous pressure monitoring. Catheter used to engage the right coronary. No dampening or ventricularization. Cineangiography performed in all projections. Next, due to unremarkable coronaries, aggressive hypertension and recurrent chest pain, root aortography was performed with a pigtail catheter in the ENGLISH projection with power injection. Next, catheter was removed from the body of wire, sheath removed. Manual pressure used to achieve hemostasis. I directly supervised the administration of moderate sedation with fentanyl and Versed from 9:00 a.m. to 9:30 a.m. No immediate complications were noted. DATA: Aortic pressure is 180/160, LV pressure is 180. LVEDP of 25 mmHg. Left ventriculography revealed normal systolic performance with estimated ejection fraction of 55-60%. No evidence of aortic stenosis. CORONARY ANATOMY: This is a right dominant system. Left main without significant disease, bifurcates into left anterior descending and left circumflex. Left circumflex, a moderate-sized vessel, courses AV groove. Scattered luminal irregularities. Patent stent in the mid left circumflex. Mild small vessel disease in this distal circumflex, nonobstructive disease noted. LAD is a moderate-sized vessel, coursing anterior intergroove, wraps around the apex. Patent stent in the mid LAD. Scattered luminal irregularities otherwise, but no obstructive disease identified. Right coronary is a moderate sized-vessel, courses AV groove, distally bifurcates into posterior descending and posterolateral branches. Stents are noted in the proximal and mid right coronary. A 20-30% stenosis in the mid right coronary, MADY 3 flow, no obstructive disease identified. Root aortography reveals normal contour, no evidence of dissection, normal great vessel anatomy, no aortic insufficiency. [id number] nonobstructive disease in this right dominant system with patent stents in the proximal/mid right coronary, mid LAD, mid left circumflex. Root aortography without evidence of aortic dissection, penetrating aortic ulcer, or aortic insufficiency. CONCLUSIONS: 1. Normal left ventricular systolic performance, estimated ejection fraction of 55-60%. 2. No evidence of aortic stenosis. 3. Uncontrolled hypertension. At this point, the patient is clinically improved. No chest pain. Medical management, aggressive blood pressure control. Consider adding Imdur and Ranexa. Standard groin care. Results of procedure explained to the patient at length. All questions and concerns were addressed. We will follow. JOB# [id number] SBM/NTS
[2019-11-04] MEDS: LOSARTAN 50 MG TAB PO SCH (13:21)
[2019-11-04] MEDS: METOPROLOL TARTRATE 25 MG TAB PO SCH ×2 (13:21→21:23)
[2019-11-04] MEDS: FAMOTIDINE 20 MG TAB PO SCH ×2 (13:24→21:23)
[2019-11-04] MEDS ORDERED: traMADol 50 MG TAB PO PRN (13:35)
[2019-11-04] MEDS ORDERED: HYDROcodone/ACETAMINOPHEN 5-325 MG TAB PO PRN (13:35)
--- NOTE | 2019-11-04 13:35 | Progress Note ---
Assessment and Plan S/p [facility] today via groin approach which showed left circ scattered LI, patent stent in mid left circ, mild small vessel disease in distal circ, patent mid LAD stent with scattered LI otherwise, prox and mid RCA stents noted, 20-30% stenosis in mid RCA, normal LVEF. Continue with medical management - add Ranexa and optimize anti-hypertensive regimen. Await echo. Smoking cessation counseling provided. Anticipate d/c in AM pending BPs are optimized. Pt seen in conjunction with Dr. Emmy Campos who agrees with the assessment and plan of care. - Patient Problems (1) Chest pain Current Visit: Yes Status: Resolved Qualifiers: (2) CAD (coronary artery disease) Current Visit: Yes Status: Chronic Qualifiers: Coronary Disease-Associated Artery/Lesion type: [place] artery [place] vs. transplanted heart: [place] heart Associated angina: with unstable angina Qualified Code(s): I25.110 - Atherosclerotic heart disease of [place] coronary artery with unstable angina pectoris (3) Stented coronary artery Current Visit: Yes Status: Acute Plan to address problem: x4 (4) Hyperkalemia Current Visit: Yes Status: Acute (5) HTN (hypertension) Current Visit: Yes Status: Chronic Qualifiers: Hypertension type: essential hypertension Qualified Code(s): I10 - Essential (primary) hypertension (6) HLD (hyperlipidemia) Current Visit: Yes Status: Chronic Qualifiers: Hyperlipidemia type: mixed hyperlipidemia Qualified Code(s): E78.2 - Mixed hyperlipidemia (7) DM2 (diabetes mellitus, type 2) Current Visit: Yes Status: Chronic (8) Tobacco abuse Current Visit: Yes Status: Chronic Subjective Date of service: 11/04/19 Principal diagnosis: chest pain Interval history: pt for [facility] today, no current complaints. in SR on tele with SB noted overnight, HR low 49bpm. Objective Last Vital Signs Temp 98.3 F 11/04/19 07:49 Pulse 59 L 11/04/19 11:52 Resp 12 11/04/19 10:30 BP 185/65 11/04/19 11:52 Pulse Ox 98 11/04/19 10:30 - Physical Examination General: No Apparent Distress HEENT: Positive: EOMI, Normocephaly, Mucus Membranes Moist Neck: Positive: neck supple, trachea midline. Negative: JVD/HJR Cardiac: Positive: Reg Rate and Rhythm, S1/S2 Lungs: Positive: Decreased Breath Sounds Neuro: Positive: Grossly Intact Abdomen: Positive: Soft, Active Bowel Sounds. Negative: Tender Skin: Negative: Rash, Wound Musculoskeletal: No Fluid Collection, No Pain, Normal Range of Motion Extremities: Present: upper extr. pulses, lower extr. pulses. Absent: edema - Labs and Meds Coagulation 11/04/19 Range/Units 05:09 PT 14.1 (12.2-14.9) Sec. INR 1.07 (0.87-1.13) CBC 11/04/19 Range/Units 05:09 WBC 5.4 (4.5-11.0) K/mm3 RBC 3.23 L (3.65-5.03) M/mm3 Hgb 11.0 (10.1-14.3) gm/dl Hct 31.6 (30.3-42.9) % Plt Count 169 (140-440) K/mm3 Comprehensive Metabolic Panel 11/04/19 Range/Units 05:09 Sodium 140 (137-145) mmol/L Potassium 3.8 D (3.6-5.0) mmol/L Chloride 104.1 (98-107) mmol/L Carbon Dioxide 24 (22-30) mmol/L BUN 17 (7-17) mg/dL Creatinine 0.8 (0.6-1.2) mg/dL Glucose 184 H (65-100) mg/dL Calcium 8.7 (8.4-10.2) mg/dL - Imaging and Cardiology EKG: report reviewed (Sinus rhythm no acute ST-T wave changes) Cardiac cath: pending, report reviewed (07/2017 - PCI x 2 of RCA w/residual stenosis of 30-40% noted, patent LAD and LCx stents, LVEF 60-65%), other (10/2016 - PCI of LAD and LCx) - EKG Sinus rhythms and dysrhythmias: sinus rhythm Chamber hypertrophy or enlargement: left ventricular hypertro Repolarization changes or abnormalities: nonspecific abnormality, ST segment, and/or T wave
--- NOTE | 2019-11-04 19:04 | Progress Note ---
Assessment and Plan Assessment and plan: -- Unstable angina Current Visit: Yes Status: Acute Plan to address problem: Status post heart cath today Patent stents, EF 55 to 60% Findings reviewed from the report Patient feels better no new complaints Medications optimized, cardiology added Ranexa --h/o Coronary artery disease s/p PCI Current Visit: Yes Status: Chronic Plan to address problem: Continue current regimen Cardiology optimized the medications --Type II DM Current Visit: Yes Status: Chronic Plan to address problem: Check hemoglobin A1c Accu-Chek sliding scale coverage ADA diet Hold metformin, insulin as needed --HLD (hyperlipidemia) Current Visit: Yes Status: Chronic Plan to address problem: Continue statins. Low-cholesterol diet --HTN (hypertension) Current Visit: Yes Status: Chronic Plan to address problem: Continue antihypertensives and adjust medications as necessary --morbid obesity; BMI 41.9 Current Visit: Yes Status: Chronic Plan to address problem: patient needs weight reduction when medically stable May benefit by outpatient bariatric surgical/medical weight reduction program When medically stable --possible obstructive sleep apnea Current Visit: Yes Status: Acute. Plan to address problem: CPAP/BiPAP at night as needed need outpatient sleep study to rule out PARISH If not already done --DVT prophylaxis Current Visit: Yes Status: Acute Plan to address problem: On heparin and GI prophylaxis We will closely monitor the patient and adjust management as needed Plan of care reviewed with the patient and her nurse Possible discharge home tomorrow if stable and cleared by cardiology History Interval history: I have seen and examined the patient this afternoon at the bedside Patient's chart and medications reviewed Patient had left heart catheterization today, findings as mentioned in the report Patient denies any chest pain or shortness of breath Vital signs noted Hospitalist Physical - Constitutional Vitals: Temp Pulse Resp BP Pulse Ox 98.3 F 59 L 12 185/65 98 11/04/19 07:49 11/04/19 11:52 11/04/19 10:30 11/04/19 11:52 11/04/19 10:30 General appearance: Present: no acute distress, well-nourished, obese (Morbidly obese) - EENT Eyes: Present: PERRL, EOM intact - Neck Neck: Present: supple, normal ROM - Respiratory Respiratory effort: normal Respiratory: bilateral: diminished, negative: rales, rhonchi, wheezing - Cardiovascular Rhythm: regular Heart Sounds: Present: S1 & S2 - Extremities Extremities: no ischemia, No edema - Abdominal General gastrointestinal: soft, non-tender, non-distended, normal bowel sounds - Integumentary Integumentary: Present: clear, warm - Psychiatric Psychiatric: appropriate mood/affect, cooperative - Neurologic Neurologic: moves all extremities HEART Score - HEART Score EKG: Non-specific Age: > 65 Risk factors: > 3 risk factors or hx of atherosclerotic disease Troponin: Troponin T < 0.010 ng/mL (0.00-0.029) 11/03/19 17:11 Troponin: < normal limit - Critical Actions Critical Actions: 4-6 pts:12-16.6% risk of adverse cardiac event. Should be admitted Results - Labs CBC & Chem 7: 11/04/19 05:09 11/04/19 05:09 Labs: Laboratory Last Values WBC 5.4 K/mm3 (4.5-11.0) 11/04/19 05:09 RBC 3.23 M/mm3 (3.65-5.03) L 11/04/19 05:09 Hgb 11.0 gm/dl (10.1-14.3) 11/04/19 05:09 Hct 31.6 % (30.3-42.9) 11/04/19 05:09 MCV 98 fl (79-97) H 11/04/19 05:09 MCH 34 pg (28-32) H 11/04/19 05:09 MCHC 35 % (30-34) H 11/04/19 05:09 RDW 13.3 % (13.2-15.2) 11/04/19 05:09 Plt Count 169 K/mm3 (140-440) 11/04/19 05:09 Lymph % (Auto) 14.0 % (13.4-35.0) 11/03/19 11:08 [place] % (Auto) 6.4 % (0.0-7.3) 11/03/19 11:08 Eos % (Auto) 2.0 % (0.0-4.3) 11/03/19 11:08 Baso % (Auto) 0.6 % (0.0-1.8) 11/03/19 11:08 Lymph # (Auto) 0.9 K/mm3 (1.2-5.4) L 11/03/19 11:08 [place] # (Auto) 0.4 K/mm3 (0.0-0.8) 11/03/19 11:08 Eos # (Auto) 0.1 K/mm3 (0.0-0.4) 11/03/19 11:08 Baso # (Auto) 0.0 K/mm3 (0.0-0.1) 11/03/19 11:08 Seg Neutrophils % 77.0 % (40.0-70.0) H 11/03/19 11:08 Seg Neutrophils # 5.1 K/mm3 (1.8-7.7) 11/03/19 11:08 PT 14.1 Sec. (12.2-14.9) 11/04/19 05:09 INR 1.07 (0.87-1.13) 11/04/19 05:09 Sodium 140 mmol/L (137-145) 11/04/19 05:09 Potassium 3.8 mmol/L (3.6-5.0) D 11/04/19 05:09 Chloride 104.1 mmol/L (98-107) 11/04/19 05:09 Carbon Dioxide 24 mmol/L (22-30) 11/04/19 05:09 Anion Gap 16 mmol/L 11/04/19 05:09 BUN 17 mg/dL (7-17) 11/04/19 05:09 Creatinine 0.8 mg/dL (0.6-1.2) 11/04/19 05:09 Estimated GFR > 60 ml/min 11/04/19 05:09 BUN/Creatinine Ratio 21 % 11/04/19 05:09 Glucose 184 mg/dL (65-100) H 11/04/19 05:09 POC Glucose 273 (70-105) H 11/04/19 17:07 Calcium 8.7 mg/dL (8.4-10.2) 11/04/19 05:09 Magnesium 1.90 mg/dL (1.7-2.3) 11/03/19 12:13 Total Creatine Kinase 199 units/L (30-135) H 11/03/19 12:13 Troponin T < 0.010 ng/mL (0.00-0.029) 11/03/19 17:11 Navas/IV: Voiding Method Bedpan IV Catheter Type [Left Hand] Peripheral IV IV Catheter Type [Right Hand] Peripheral IV Active Medications - Current Medications Current Medications: Generic Name Dose Route Start Last Admin Trade Name Freq PRN Reason Stop Dose Admin Hydrocodone Bitart/Acetaminophen 1 each 11/04/19 13:35 Ayr 5/325 PO Q4H PRN Pain, Moderate (4-6) Amlodipine Besylate 10 mg 11/03/19 17:00 11/04/19 11:52 Amlodipine PO 10 mg QDAY MARY Administration Aspirin 81 mg 11/04/19 10:00 11/04/19 10:00 Baby Aspirin PO Not Given QDAY MARY Atorvastatin Calcium 40 mg 11/03/19 22:00 11/04/19 01:47 Lipitor PO Not Given QHS [facility] Clopidogrel Bisulfate 75 mg 11/04/19 10:00 11/04/19 11:54 Plavix PO Not Given QDAY MARY Doxazosin Mesylate 4 mg 11/04/19 10:00 11/04/19 11:50 Cardura PO 4 mg QDAY [facility] Administration Famotidine 20 mg 11/04/19 10:00 11/04/19 13:24 Pepcid PO 20 mg BID MARY Administration Hydrochlorothiazide 25 mg 11/03/19 17:00 11/04/19 11:50 Hctz PO 25 mg QDAY MARY Administration Insulin Glargine 55 units 11/04/19 22:00 Lantus SUB-Q QHS [facility] Insulin Human Lispro 0 unit 11/04/19 07:30 11/04/19 17:23 Humalog SUB-Q 4 unit ACHS [facility] Administration Protocol Insulin Human Regular 10 unit 11/04/19 07:30 11/04/19 17:22 Humulin R SUB-Q 10 unit AC MARY Administration Losartan Potassium 100 mg 11/03/19 17:00 11/04/19 13:21 Cozaar PO 100 mg QDAY [facility] Administration Metoprolol Tartrate 25 mg 11/03/19 22:00 11/04/19 13:21 Metoprolol PO Not Given BID [facility] Miscellaneous Medication 1 tab 11/04/19 10:00 Bictegrav/Emtricit/Tenofov Ala PO QDAY [facility] Morphine Sulfate 2 mg 11/04/19 11:40 11/04/19 12:03 Morphine IV 2 mg Q4H PRN Administration Pain, Moderate (4-6) Nitroglycerin 0.4 mg 11/03/19 11:47 Nitrostat SL .Q5MIN PRN Chest Pain Ranolazine 500 mg 11/04/19 22:00 Ranexa Er PO BID MARY Tramadol HCl 50 mg 11/04/19 13:35 Ultram PO Q4H PRN Pain, Mild (1-3)
[2019-11-04] MEDS: RANOLAZINE ER 500 MG TAB 12HR PO SCH (21:22)
[2019-11-04] MEDS ORDERED: NON-FORMULARY EACH (Rosuvastatin (Nf) 20 MG) PO SCH (22:00)
[2019-11-04] MEDS ORDERED: INSULIN GLARGINE 100 UNITS/ML SUB-Q SCH (22:00)
[2019-11-04] MEDS ORDERED: INSULIN GLARGINE HUM REC ANLOG 55 UNIT SQ SCH (22:00)
[2019-11-05] MEDS: INSULIN LISPRO 100 UNIT/ML VIAL 3 mL SUB-Q SCH ×4 (02:12→17:08)
[2019-11-05 05:32] LABS: BUN/Creatinine Ratio 20; Blood Urea Nitrogen 18 mg/dL (7-17); Hemolysis Index 5
[2019-11-05] MEDS: FAMOTIDINE 20 MG TAB PO SCH (10:20)
[2019-11-05] MEDS: RANOLAZINE ER 500 MG TAB 12HR PO SCH (10:20)
[2019-11-05] MEDS: LOSARTAN 50 MG TAB PO SCH (10:20)
[2019-11-05] MEDS: DOXAZOSIN 4 MG TAB PO SCH (10:21)
[2019-11-05] MEDS: ASPIRIN 81 MG TAB CHEW PO SCH (10:21)
[2019-11-05] MEDS: CLOPIDOGREL 75 MG TAB PO SCH (10:24)
[2019-11-05] MEDS: hydroCHLOROthiazide 25 MG TAB PO SCH (10:25)
[2019-11-05] MEDS: METOPROLOL TARTRATE 25 MG TAB PO SCH (10:25)
[2019-11-05] MEDS: amLODIPine 10 MG TAB PO SCH (10:29)
[2019-11-05] MEDS: INSULIN REGULAR, HUMAN 100 UNIT/ML 3ML VIAL SUB-Q SCH ×3 (10:31→17:07)
--- NOTE | 2019-11-05 10:52 | Discharge Summary ---
Providers - Providers Date of Admission: 11/03/19 12:30 Date of discharge: 11/05/19 Attending physician: MARGARITA JOEL 11/03/19 11:47 Consult to Physician [CONS] Urgent Comment: Consulting Provider: BALTAZAR JAIN Physician Instructions: Reason For Exam: acute chest pain 11/04/19 13:36 Consult to Cardiac Rehabilitation [CONS] Routine Reason For Exam: Cardiac Rehab Evaluation Primary care physician: BILL STEIN Hospitalization Condition: Good Hospital course: 58-year-old female with multiple medical problems including coronary artery disease multiple stents x4, hypertension, type 2 diabetes and hyperlipidemia was admitted through emergency room with history of recurrent intermittent chest pain. For the last 3 to 4 days. Patient had a cardiac cath in this hospital in 2018 which showed severe essentially single-vessel coronary artery disease with 90% proximal RCA stenosis and a long complex 80% mid RCA stenosis in the setting of acute coronary syndrome/unstable angina. Patient had 2 stents at that time. Patient also had 2 stents over 9 months before. Patient was admitted managed appropriately, evaluated by cardiology, underwent left heart catheterization which showed patent stents And EF 55 to 60%. Patient's medications were optimized, advised Ranexa twice a day Smoking cessation counseling done, advised nicotine patch as needed Patient also encouraged to comply with medications diet follow-up visits, Patient verbalized understanding As patient had heart cath, metformin was held ,Advised to resume metformin 48 hours post heart cath, advised to resume metformin from 11/07/2019 A.m. dose. Today she is comfortable no new complaints vital signs stable Denies chest pain or shortness of breath Physical examination prior to discharge is unremarkable stable at discharge Discharge diagnosis: -- Unstable angina Current Visit: Yes Status: Acute Plan to address problem: Status post heart cath today Patent stents, EF 55 to 60% Findings reviewed from the report Patient feels better no new complaints Medications optimized, cardiology added Ranexa --h/o Coronary artery disease s/p PCI Current Visit: Yes Status: Chronic Plan to address problem: Continue current regimen Cardiology optimized the medications --Type II DM Current Visit: Yes Status: Chronic Plan to address problem: Check hemoglobin A1c Accu-Chek sliding scale coverage ADA diet Hold metformin, insulin as needed --HLD (hyperlipidemia) Current Visit: Yes Status: Chronic Plan to address problem: Continue statins. Low-cholesterol diet --HTN (hypertension) Current Visit: Yes Status: Chronic Plan to address problem: Continue antihypertensives and adjust medications as necessary --morbid obesity; BMI 41.9 Current Visit: Yes Status: Chronic Plan to address problem: patient needs weight reduction when medically stable May benefit by outpatient bariatric surgical/medical weight reduction program When medically stable --possible obstructive sleep apnea Current Visit: Yes Status: Acute. Plan to address problem: CPAP/BiPAP at night as needed need outpatient sleep study to rule out PARISH If not already done --DVT prophylaxis Current Visit: Yes Status: Acute Plan to address problem: On heparin and GI prophylaxis We will closely monitor the patient and adjust management as needed Plan of care reviewed with the patient and her nurse Possible discharge home tomorrow if stable and cleared by cardiology Time spent for discharge: 35 min Exam - Constitutional Vitals: Temp Pulse Resp BP Pulse Ox 97.9 F 52 L 20 151/49 97 11/05/19 08:10 11/05/19 10:29 11/05/19 08:10 11/05/19 10:29 11/05/19 08:10 Plan Activity: advance as tolerated Diet: other (Cardiac diet) Special Instructions: smoking cessation Additional Instructions: Follow up with your primary labor and delivery registered nurse, Dr. Schneider @ [facility], within 2 weeks of discharge. Patient's metformin was held due to left heart catheterization, may resume metformin on 11/07/2019 with the morning dose. If you have worsening symptoms contact MD or go to emergency room. Smoking cessation advised Follow up with: BILL STEIN MD [Primary Care Provider] - 7 Days Prescriptions: Nicotine [Habitrol] 14 mg TD DAILY #30 patch Ranolazine ER [Ranexa ER] 500 mg PO BID #60 tablet
--- NOTE | 2019-11-05 14:07 | Progress Note ---
Assessment and Plan S/p LHC yesterday via groin approach which showed left circ scattered LI, patent stent in mid left circ, mild small vessel disease in distal circ, patent mid LAD stent with scattered LI otherwise, prox and mid RCA stents noted, 20-30% stenosis in mid RCA, normal LVEF. Continue present medical management. tte reviewed - EF 55-60%, impaired relaxation, mild MR. Smoking cessation counseling provided. Currently stable cardiac status. Chest pain currently resolved. Pt may discharge from cardiology standpoint. Recommend pt follow up with her primary commercial insurance underwriter, Dr. Schneider @ [facility], within 2 weeks of discharge. Pt verbalizes understanding. Pt seen in conjunction with Dr. Emmy Campos who agrees with the assessment and plan of care. - Patient Problems (1) Chest pain Current Visit: Yes Status: Resolved Qualifiers: (2) CAD (coronary artery disease) Current Visit: Yes Status: Chronic Qualifiers: Coronary Disease-Associated Artery/Lesion type: iroquois artery [place] vs. transplanted heart: iroquois heart Associated angina: with unstable angina Qualified Code(s): I25.110 - Atherosclerotic heart disease of iroquois coronary artery with unstable angina pectoris (3) Stented coronary artery Current Visit: Yes Status: Acute Plan to address problem: x4 (4) Hyperkalemia Current Visit: Yes Status: Acute (5) HTN (hypertension) Current Visit: Yes Status: Chronic Qualifiers: Hypertension type: essential hypertension Qualified Code(s): I10 - Essential (primary) hypertension (6) HLD (hyperlipidemia) Current Visit: Yes Status: Chronic Qualifiers: Hyperlipidemia type: mixed hyperlipidemia Qualified Code(s): E78.2 - Mixed hyperlipidemia (7) DM2 (diabetes mellitus, type 2) Current Visit: Yes Status: Chronic (8) Tobacco abuse Current Visit: Yes Status: Chronic Subjective Date of service: 11/05/19 Principal diagnosis: chest pain Interval history: pt resting in bed, no current complaints. in SR on tele with SB noted overnight, HR low 48bpm. Objective Last Vital Signs Temp 97.2 F L 11/05/19 11:21 Pulse 57 L 11/05/19 11:21 Resp 20 11/05/19 11:21 BP 176/50 11/05/19 11:21 Pulse Ox 96 11/05/19 11:21 - Physical Examination General: No Apparent Distress HEENT: Positive: EOMI, Normocephaly, Mucus Membranes Moist Neck: Positive: neck supple, trachea midline. Negative: JVD/HJR Cardiac: Positive: Regular Rhythm, S1/S2 Lungs: Positive: Decreased Breath Sounds Neuro: Positive: Grossly Intact Abdomen: Positive: Soft, Active Bowel Sounds. Negative: Tender Skin: Negative: Rash, Wound Incision: Cardiac Cath Site (right groin, c/d/i, no bleeding or hematoma) Musculoskeletal: No Fluid Collection, No Pain, Normal Range of Motion Extremities: Present: upper extr. pulses, lower extr. pulses. Absent: edema - Labs and Meds Comprehensive Metabolic Panel 11/05/19 Range/Units 04:48 Sodium 142 (137-145) mmol/L Potassium 4.0 (3.6-5.0) mmol/L Chloride 103.9 (98-107) mmol/L Carbon Dioxide 25 (22-30) mmol/L BUN 18 H (7-17) mg/dL Creatinine 0.9 (0.6-1.2) mg/dL Glucose 108 H (65-100) mg/dL Calcium 9.0 (8.4-10.2) mg/dL - Imaging and Cardiology EKG: report reviewed (Sinus rhythm no acute ST-T wave changes) Cardiac cath: report reviewed (07/2017 - PCI x 2 of RCA w/residual stenosis of 30-40% noted, patent LAD and LCx stents, LVEF 60-65%), other (10/2016 - PCI of LAD and LCx) - Telemetry EKG Rhythm: Sinus Rhythm - EKG Sinus rhythms and dysrhythmias: sinus rhythm Chamber hypertrophy or enlargement: left ventricular hypertro Repolarization changes or abnormalities: nonspecific abnormality, ST segment, and/or T wave
[2019-11-05 17:23] VITALS: BP 150/74
== END 2019-11-05 19:19 | disposition home or self-care (01) ==
LOC: ED 10:16 → 4A 12:30
PROVIDERS: ADMIT Internal Medicine; ATTEND Internal Medicine
DX: I25.110 Atherosclerotic heart disease of native coronary artery with unstable angina pectoris (principal); E11.9 Type 2 diabetes mellitus without complications; E78.2 Mixed hyperlipidemia; I10 Essential (primary) hypertension; I25.2 Old myocardial infarction; E87.5 Hyperkalemia; E66.01 Morbid (severe) obesity due to excess calories; F17.200 Nicotine dependence, unspecified, uncomplicated; Z95.5 Presence of coronary angioplasty implant and graft; Z71.6 Tobacco abuse counseling; Z79.4 Long term (current) use of insulin; Z79.82 Long term (current) use of aspirin; Z79.899 Other long term (current) drug therapy; Z68.41 Body mass index [BMI] 40.0-44.9, adult
CPT/HCPCS: 36415; 71045; 80048; 82550; 82962; 83735; 84484; 85025; 85027; 85610; 93005; 93306; 93458; 96374; 99285; 99406; A9270; C1894; G0378; J1644; J2250; J2270; J3010; J7040; 96361; 96372; J1815; Q9967

== ENCOUNTER 2019-12-24 18:39 | Emergency (ER) | payer MEDICARE ==
--- NOTE | 2019-12-24 19:06 | Emergency Department Report ---
ED General Adult HPI - General Chief complaint: Hyperglycemia Stated complaint: HIGH BLOOD SUGAR Time Seen by Provider: 12/24/19 18:44 Source: EMS Mode of arrival: Ambulatory Limitations: No Limitations - History of Present Illness Initial comments: The patient presents to the emergency department with a chief complaint of near syncopal episode. Patient states she was at a birthday celebration for her friend when he began to sing happy birthday she had a sensation of lightheadedness. Patient states she also felt very hot as if she was about to pass out. Patient states that at that point she knew this had something to do with her diabetes. She states this is very consistent with other times of elevated glucose levels. Patient denies chest pain, shortness breath, or headache. -: Sudden Severity scale (0 -10): 0 Consistency: now resolved Improves with: none Worsens with: none Associated Symptoms: denies other symptoms Treatments Prior to Arrival: none - Related Data Home Medications Medication Instructions Recorded Confirmed Last Taken Famotidine [Pepcid] 20 mg PO BID 08/05/17 11/03/19 08/03/17 Novolin R 17 units SQ AC 08/05/17 11/03/19 Unknown Bictegrav/Emtricit/Tenofov Ala 1 tab PO QDAY 11/03/19 11/03/19 Unknown [Biktarvy 50-200-25 mg (Nf)] Doxazosin [Cardura] 4 mg PO QDAY 11/03/19 11/03/19 Unknown Insulin Glargine,Hum.rec.anlog 55 unit SQ HS 11/03/19 11/03/19 Unknown [Talaglsheron Hester U-100] Metformin HCl [metFORMIN] 1,000 mg PO BID 11/03/19 11/03/19 11/03/19 Previous Rx's Medication Instructions Recorded Last Taken Type Aspirin EC [Halfprin EC] 81 mg PO QDAY #30 tablet 08/07/17 Unknown Rx Clopidogrel [Plavix] 75 mg PO QDAY #30 tablet 08/07/17 Unknown Rx Losartan/Hydrochlorothiazide 1 each PO DAILY #30 tablet 08/07/17 Unknown Rx [Losartan-Hctz 100-25 mg Tab] Metoprolol [Lopressor TAB] 25 mg PO BID #60 tablet 08/07/17 Unknown Rx NIFEdipine [Nifedipine ER] 60 mg PO BID #60 08/07/17 08/04/17 Rx Rosuvastatin (Nf) [Crestor] 20 mg PO QHS #30 tablet 08/07/17 Unknown Rx Nicotine [Habitrol] 14 mg TD DAILY #30 patch 11/05/19 Unknown Rx Ranolazine ER [Ranexa ER] 500 mg PO BID #60 tablet 11/05/19 Unknown Rx Allergies Allergy/AdvReac Type Severity Reaction Status Date / Time No Known Allergies Allergy Unverified 08/04/17 16:04 ED Review of Systems ROS: Stated complaint: HIGH BLOOD SUGAR Other details as noted in HPI Comment: All other systems reviewed and negative Constitutional: denies: chills, fever Eyes: denies: eye pain, eye discharge, vision change ENT: denies: ear pain, throat pain Respiratory: denies: cough, shortness of breath, wheezing Cardiovascular: denies: chest pain, palpitations Endocrine: no symptoms reported Gastrointestinal: denies: abdominal pain, nausea, diarrhea Genitourinary: denies: urgency, dysuria, discharge Musculoskeletal: denies: back pain, joint swelling, arthralgia Skin: denies: rash, lesions Neurological: denies: headache, weakness, paresthesias Psychiatric: denies: anxiety, depression Hematological/Lymphatic: denies: easy bleeding, easy bruising ED Past Medical Hx - Past Medical History Hx Hypertension: Yes Hx Heart Attack/AMI: Yes Hx Diabetes: Yes Hx Arthritis: Yes Hx Asthma: Yes Hx HIV: Yes - Surgical History Hx Coronary Stent: Yes Additional Surgical History: Cardiac stents - Social History Smoking Status: Current Every Day Smoker - Medications Home Medications: Home Medications Medication Instructions Recorded Confirmed Last Taken Type Famotidine [Pepcid] 20 mg PO BID 08/05/17 11/03/19 08/03/17 History Novolin R 17 units SQ AC 08/05/17 11/03/19 Unknown History Aspirin EC [Halfprin EC] 81 mg PO QDAY #30 tablet 08/07/17 11/03/19 Unknown Rx Clopidogrel [Plavix] 75 mg PO QDAY #30 tablet 08/07/17 11/03/19 Unknown Rx Losartan/Hydrochlorothiazide 1 each PO DAILY #30 tablet 08/07/17 11/03/19 U nknown Rx [Losartan-Hctz 100-25 mg Tab] Metoprolol [Lopressor TAB] 25 mg PO BID #60 tablet 08/07/17 11/03/19 Unknown Rx NIFEdipine [Nifedipine ER] 60 mg PO BID #60 08/07/17 11/03/19 08/04/17 Rx Rosuvastatin (Nf) [Crestor] 20 mg PO QHS #30 tablet 08/07/17 11/03/19 Unknown Rx Bictegrav/Emtricit/Tenofov Ala 1 tab PO QDAY 11/03/19 11/03/19 Unknown History [Biktarvy 50-200-25 mg (Nf)] Doxazosin [Cardura] 4 mg PO QDAY 11/03/19 11/03/19 Unknown History Insulin Glargine,Hum.rec.anlog 55 unit SQ HS 11/03/19 11/03/19 Unknown History [Talaglsheron Hester U-100] Metformin HCl [metFORMIN] 1,000 mg PO BID 11/03/19 11/03/19 11/03/19 History Nicotine [Habitrol] 14 mg TD DAILY #30 patch 11/05/19 Unknown Rx Ranolazine ER [Ranexa ER] 500 mg PO BID #60 tablet 11/05/19 Unknown Rx ED Physical Exam - General Limitations: No Limitations General appearance: alert, in no apparent distress - Head Head exam: Present: atraumatic, normocephalic - Eye Eye exam: Present: normal appearance, PERRL, EOMI - ENT ENT exam: Present: mucous membranes moist - Neck Neck exam: Present: normal inspection - Respiratory Respiratory exam: Present: normal lung sounds bilaterally. Absent: respiratory distress - Cardiovascular Cardiovascular Exam: Present: regular rate, normal rhythm. Absent: systolic murmur, diastolic murmur, rubs, gallop - GI/Abdominal GI/Abdominal exam: Present: soft, normal bowel sounds. Absent: distended, tenderness - Extremities Exam Extremities exam: Present: normal inspection - Back Exam Back exam: Present: normal inspection - Neurological Exam Neurological exam: Present: alert, oriented X3, CN II-XII intact. Absent: motor sensory deficit - Psychiatric Psychiatric exam: Present: normal affect, normal mood - Skin Skin exam: Present: warm, dry, intact, normal color. Absent: rash ED Course Vital Signs 12/24/19 12/24/19 12/24/19 18:53 19:01 19:15 Pulse Rate 64 60 66 Respiratory 26 H 20 21 Rate Blood Pressure 163/57 163/57 O2 Sat by Pulse 100 100 99 Oximetry 12/24/19 12/24/19 12/24/19 19:32 19:45 20:01 Pulse Rate 70 65 69 Respiratory 21 19 24 Rate Blood Pressure 163/57 163/57 163/57 O2 Sat by Pulse 94 100 99 Oximetry ED Medical Decision Making - Lab Data Result diagrams: 12/24/19 19:04 12/24/19 19:04 Lab Results 12/24/19 12/24/19 12/24/19 Range/Units 19:04 19:04 19:04 WBC 6.9 (4.5-11.0) K/mm3 RBC 3.67 (3.65-5.03) M/mm3 Hgb 12.3 (10.1-14.3) gm/dl Hct 35.6 (30.3-42.9) % MCV 97 (79-97) fl MCH 33 H (28-32) pg MCHC 35 H (30-34) % RDW 13.3 (13.2-15.2) % Plt Count 200 (140-440) K/mm3 Lymph % (Auto) 19.2 (13.4-35.0) % [place] % (Auto) 7.8 H (0.0-7.3) % Eos % (Auto) 2.8 (0.0-4.3) % Baso % (Auto) 0.8 (0.0-1.8) % Lymph # (Auto) 1.3 (1.2-5.4) K/mm3 [place] # (Auto) 0.5 (0.0-0.8) K/mm3 Eos # (Auto) 0.2 (0.0-0.4) K/mm3 Baso # (Auto) 0.1 (0.0-0.1) K/mm3 Seg Neutrophils % 69.4 (40.0-70.0) % Seg Neutrophils # 4.8 (1.8-7.7) K/mm3 PT 14.0 (12.2-14.9) Sec. INR 1.06 (0.87-1.13) Sodium 136 L (137-145) mmol/L Potassium 4.8 (3.6-5.0) mmol/L Chloride 98.0 (98-107) mmol/L Carbon Dioxide 29 (22-30) mmol/L Anion Gap 14 mmol/L BUN 12 (7-17) mg/dL Creatinine 1.3 H (0.6-1.2) mg/dL Estimated GFR 49 ml/min BUN/Creatinine Ratio 9 % Glucose 338 H (65-100) mg/dL POC Glucose (70-105) mg/dL Calcium 9.6 (8.4-10.2) mg/dL Total Bilirubin 0.30 (0.1-1.2) mg/dL AST 16 (5-40) units/L ALT 12 (7-56) units/L Alkaline Phosphatase 94 (35-129) units/L Troponin T < 0.010 (0.00-0.029) ng/mL Total Protein 7.5 (6.3-8.2) g/dL Albumin 4.0 (3.9-5) g/dL Albumin/Globulin Ratio 1.1 % 12/24/19 12/24/19 Range/Units 20:24 20:52 WBC (4.5-11.0) K/mm3 RBC (3.65-5.03) M/mm3 Hgb (10.1-14.3) gm/dl Hct (30.3-42.9) % MCV (79-97) fl MCH (28-32) pg MCHC (30-34) % RDW (13.2-15.2) % Plt Count (140-440) K/mm3 Lymph % (Auto) (13.4-35.0) % [place] % (Auto) (0.0-7.3) % Eos % (Auto) (0.0-4.3) % Baso % (Auto) (0.0-1.8) % Lymph # (Auto) (1.2-5.4) K/mm3 [place] # (Auto) (0.0-0.8) K/mm3 Eos # (Auto) (0.0-0.4) K/mm3 Baso # (Auto) (0.0-0.1) K/mm3 Seg Neutrophils % (40.0-70.0) % Seg Neutrophils # (1.8-7.7) K/mm3 PT (12.2-14.9) Sec. INR (0.87-1.13) Sodium (137-145) mmol/L Potassium (3.6-5.0) mmol/L Chloride (98-107) mmol/L Carbon Dioxide (22-30) mmol/L Anion Gap mmol/L BUN (7-17) mg/dL Creatinine (0.6-1.2) mg/dL Estimated GFR ml/min BUN/Creatinine Ratio % Glucose (65-100) mg/dL POC Glucose 312 H (70-105) mg/dL Calcium (8.4-10.2) mg/dL Total Bilirubin (0.1-1.2) mg/dL AST (5-40) units/L ALT (7-56) units/L Alkaline Phosphatase (35-129) units/L Troponin T < 0.010 (0.00-0.029) ng/mL Total Protein (6.3-8.2) g/dL Albumin (3.9-5) g/dL Albumin/Globulin Ratio % - EKG Data -: EKG Interpreted by Me EKG shows normal: sinus rhythm Rate: normal - Radiology Data Radiology results: report reviewed - Medical Decision Making Discussed results with patient Glucose decreased to 312 Critical care attestation.: If time is entered above; I have spent that time in minutes in the direct care of this critically ill patient, excluding procedure time. ED Disposition Clinical Impression: Vasovagal episode, Hyperglycemia Disposition: - TO HOME OR SELFCARE Is pt being admited?: No Does the pt Need Aspirin: No Condition: Stable Instructions: Syncope (ED), Near-Syncope, Hyperglycemia Additional Instructions: return if worse Referrals: MARGUERITE COVARRUBIAS MD [Staff Physician] - 3-5 Days Time of Disposition: 21:54
--- NOTE | 2019-12-24 19:51 | Cat Scan Report ---
CT head/brain wo con INDICATION / CLINICAL INFORMATION: 69 years Female; Syncope. TECHNIQUE: Routine CT head without contrast. All CT scans at this location are performed using CT dos e reduction for ALARA by means of automated exposure control. COMPARISON: The study is compared to the previous CT of 08/04/2017. FINDINGS: BRAIN / INTRACRANIAL CONTENTS: The motion degrades the image quality. However, there appears to be mi ld cerebral white matter changes most consistent with microvascular angiopathy. There are foci of burt cification within the basal ganglia bilaterally. There is no clear CT evidence of acute intracranial hemorrhage or significant mass effect. The ventricular system remains unchanged in size and configura tion. ORBITS: No significant abnormality of visualized orbits. SINUSES / MASTOIDS: No significant abnormality in the visualized paranasal sinuses or mastoid air kvng ls. CRANIOCERVICAL JUNCTION: No significant abnormality. ADDITIONAL FINDINGS: None. IMPRESSION: 1. There is no CT evidence of acute intracranial process. Signer Name: Emerson Hull MD Signed: 12/24/2019 7:47 PM Workstation Name: [id number]
--- NOTE | 2019-12-24 19:52 | XRay Report ---
CHEST 1 VIEW 12/24/2019 6:43 PM INDICATION / CLINICAL INFORMATION: Syncope. COMPARISON: 11/03/2019 FINDINGS: SUPPORT DEVICES: None. HEART / MEDIASTINUM: No significant abnormality. LUNGS / PLEURA: No significant pulmonary or pleural abnormality. No pneumothorax. ADDITIONAL FINDINGS: No significant additional findings. IMPRESSION: 1. No acute findings. Signer Name: Nik Callahan MD Signed: 12/24/2019 7:47 PM Workstation Name: [id number]
[2019-12-24 19:55] LABS: INR 1.06 (0.87-1.13)
[2019-12-24 19:58] LABS: Basophils # (Auto) 0.1 K/mm3 (0.0-0.1); Basophils % (Auto) 0.8 % (0.0-1.8); Eosinophils # (Auto) 0.2 K/mm3 (0.0-0.4); Eosinophils % (Auto) 2.8 % (0.0-4.3); Hematocrit 35.6 % (30.3-42.9); Hemoglobin 12.3 gm/dl (10.1-14.3); Lymphocytes # (Auto) 1.3 K/mm3 (1.2-5.4); Lymphocytes % (Auto) 19.2 % (13.4-35.0); Mean Corpuscular HGB Conc 35 % (30-34); Mean Corpuscular Volume 97 fl (79-97); Monocytes # (Auto) 0.5 K/mm3 (0.0-0.8); Monocytes % (Auto) 7.8 % (0.0-7.3); Platelet Count 200 K/mm3 (140-440); Red Blood Count 3.67 M/mm3 (3.65-5.03); Red Cell Distribution Width 13.3 % (13.2-15.2)
[2019-12-24 20:09] LABS: Alanine Aminotransferase 12 units/L (7-56); BUN/Creatinine Ratio 9; Blood Urea Nitrogen 12 mg/dL (7-17); Calcium 9.6 mg/dL (8.4-10.2); Hemolysis Index 9
[2019-12-24 20:13] VITALS: BP 163/57
== END 2019-12-24 20:00 | disposition home or self-care (01) ==
LOC: ED 18:39
DX: E11.65 Type 2 diabetes mellitus with hyperglycemia (principal); R55 Syncope and collapse; I25.2 Old myocardial infarction; I10 Essential (primary) hypertension; M19.91 Primary osteoarthritis, unspecified site; J45.909 Unspecified asthma, uncomplicated; F17.200 Nicotine dependence, unspecified, uncomplicated; Z21 Asymptomatic human immunodeficiency virus [HIV] infection status; Z98.890 Other specified postprocedural states; Z79.4 Long term (current) use of insulin; Z79.899 Other long term (current) drug therapy
CPT/HCPCS: 36415; 70450; 71045; 80053; 82962; 84484; 85025; 85610; 93005